=== PATIENT | male | born 1960 | race Caucasian/White ===

== ENCOUNTER 2019-04-27 10:45 | Day surgery (SDC) | payer BC ==
[2019-04-27] VITALS (10 sets, daily range): BP systolic 131–138; BP diastolic 75–98; PULSE 80–100; RESP 16–23; Ht 182.9 cm; Wt 82.6 kg
[~2019-04-27] VITALS: Ht 182.9 cm; Wt 82.6 kg
[~2019-04-27 10:45] MED LIST: SOD CHLORIDE 0.9% 1,000 ML IV ONE; TRIAMCINOLONE ACET 40 MG/ML INJ ONE
[2019-04-27] MEDS ORDERED: BUPIVACAINE 0.25%/EPI (SDV) 10 ML INJ ONE (12:37)
[2019-04-27] MEDS ORDERED: ONDANSETRON 4 MG INJ IV PRN ×2 (13:00→15:30)
[2019-04-27] MEDS ORDERED: ACETAMINOPHEN 325 MG TAB PO PRN (13:00)
[2019-04-27] MEDS ORDERED: morphine 2 MG INJ IV PRN (13:00)
[2019-04-27] MEDS ORDERED: HYDROCODONE/APAP (5/325) TAB PO PRN (13:00)
[2019-04-27] MEDS ORDERED: FENTAnyl 50 MCG/ML VIAL ONE (13:07)
[2019-04-27] MEDS ORDERED: MIDAZOLAM 1 MG/ML 2 ML INJ ONE (13:07)
[2019-04-27] MEDS ORDERED: ONDANSETRON 4 MG INJ ONE (15:07)
[2019-04-27] MEDS ORDERED: CEFAZOLIN 1 GM INJ ONE (15:07)
[2019-04-27] MEDS ORDERED: LIDOCAINE 2% (SDV) 5 ML INJ ONE (15:07)
[2019-04-27] MEDS ORDERED: PROPOFOL 20 ML ONE (15:07)
[2019-04-27] MEDS ORDERED: DIPHENHYDRAMINE 50 MG INJ IV PRN (15:30)
[2019-04-27] MEDS ORDERED: MEPERIDINE 25 MG INJ IV PRN (15:30)
[2019-04-27] MEDS ORDERED: FENTAnyl 50 MCG/ML VIAL IV PRN (15:30)
[2019-04-27] MEDS ORDERED: METOCLOPRAMIDE 10 MG INJ IV PRN (15:30)
[2019-04-27] MEDS ORDERED: HYDROmorphONE 1 MG/5 ML IV SYRINGE IV PRN ×2 (15:30)
[2019-04-27] MEDS ORDERED: LABETALOL HCL 20MG INJ IV PRN (15:30)
[2019-04-27] MEDS ORDERED: OXYCODONE/ACETAMINOPHEN (5/325) TAB PO PRN (15:30)
[2019-04-27] MEDS ORDERED: hydrALAzine 20 MG INJ IV PRN (15:30)
== END 2019-04-27 16:47 | disposition home or self-care (01) ==
LOC: SDS 10:45
PROVIDERS: ATTEND Surgery Plastic and Reconstructive Surgery
DX: C44.311 Basal cell carcinoma of skin of nose (principal); E66.9 Obesity, unspecified; Z68.24 Body mass index [BMI] 24.0-24.9, adult
CPT/HCPCS: 15240; 88305; 88331; 88332; J0690; J2250; J2405; J2765; J3010; Z7512; Z7610